=== PATIENT | female | born 1995 ===

== ENCOUNTER 2021-08-31 19:48 | Outpatient (CLI) | payer SELFPAY ==
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
[2021-08-31 21:42] LABS: Hematocrit 35.7 % (30.3-42.9); Mean Corpuscular HGB Conc 34 % (30-34); Mean Corpuscular Volume 91 fl (79-97); Platelet Count 221 K/mm3 (140-440); Red Blood Count 3.93 M/mm3 (3.65-5.03); Red Cell Distribution Width 13.6 % (13.2-15.2)
[2021-08-31 21:52] LABS: Amorphous Crystals,Urine 1+; Bacteria,Urine 2+ /HPF (Negative); Bilirubin,Urine NEG (Negative); Blood,Urine NEG (Negative); Color,Urine Yellow (Yellow); Mucus,Urine FEW /HPF; Protein,Urine <15 mg/dL mg/dL (Negative); Urobilinogen,Urine < 2.0 mg/dL (<2.0)
[2021-08-31 22:01] LABS: Alanine Aminotransferase 14 units/L (7-56); Albumin 3.6 g/dL (3.9-5); Blood Urea Nitrogen 9 mg/dL (7-17); Calcium 10.2 mg/dL (8.4-10.2); Hemolysis Index 2
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
[2021-08-31] MEDS ORDERED: ACETAMINOPHEN 500 MG TAB PO ONE (22:27)
[2021-08-31 22:39] VITALS: BP 117/67
[2021-08-31] MEDS ORDERED: LACTATED RINGERS 1,000 ML IV ONE (22:59)
[2021-08-31 23:14] LABS: BUN/Creatinine Ratio 18
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
== END 2021-09-01 02:57 | disposition home or self-care (01) ==
LOC: ED 19:48 → EDSTATUS 22:03 → TRG 22:06 → APU 22:09 → TRG 09-01 02:57
PROVIDERS: ATTEND Obstetrics & Gynecology Gynecology
DX: O26.893 Other specified pregnancy related conditions, third trimester (principal); R10.9 Unspecified abdominal pain; O47.1 False labor at or after 37 completed weeks of gestation; V89.2XXA Person injured in unspecified motor-vehicle accident, traffic, initial encounter; Z3A.32 32 weeks gestation of pregnancy; Y93.89 Activity, other specified; Y92.89 Other specified places as the place of occurrence of the external cause; Y99.8 Other external cause status
CPT/HCPCS: 36415; 59025; 76815; 76817; 76819; 80053; 81001; 85027; 86900; 86901; 96360

== ENCOUNTER 2021-10-28 01:36 | Inpatient (IN) | payer SELFPAY ==
[2021-10-28] MEDS ORDERED: fentaNYL 100 MCG/2 ML INJ IV PRN (03:23)
[2021-10-28] MEDS ORDERED: ACETAMINOPHEN 325 MG TAB PO PRN (03:23)
[2021-10-28] MEDS ORDERED: TERBUTALINE 1 MG/1 ML INJ SUB-Q PRN (03:23)
[2021-10-28] MEDS ORDERED: METHYLERGONOVINE MALEATE 0.2 MG/ML VIAL IM PRN (03:23)
[2021-10-28] MEDS ORDERED: MINERAL OIL 30 ML ORAL LIQD PO PRN (03:23)
[2021-10-28] MEDS ORDERED: LOPERAMIDE 2 MG CAP PO PRN (03:23)
[2021-10-28] MEDS ORDERED: miSOPROStol 200 MCG TAB PR PRN (03:23)
[2021-10-28] MEDS ORDERED: NalbUPHINE 10 MG/1 ML INJ IV PRN ×2 (03:23→09:08)
[2021-10-28] MEDS ORDERED: ePHEDrine SULFATE 50 MG/1 ML INJ IV PRN ×2 (03:23→09:08)
[2021-10-28] MEDS ORDERED: LIDOCAINE (2%) 20 MG/1 ML VIAL 20 ML MDV INFILTRATI ONE (03:23)
[2021-10-28] MEDS ORDERED: CARBOPROST TROMETHAMINE 250 MCG/1 ML INJ IM PRN (03:23)
[2021-10-28] MEDS ORDERED: OXYTOCIN 10 UNIT/1 ML INJ IM PRN (03:23)
[2021-10-28] MEDS ORDERED: LACTATED RINGERS 1,000 ML IV SCH (03:30)
--- NOTE | 2021-10-28 03:38 | History and Physical Report ---
History of Present Illness Date of examination: 10/28/21 Date of admission: 10/28/2021 Chief complaint: Contractions History of present illness: 26 year old presents at 41 weeks gestation with complaint of contractions. Patient denies leaking of fluid or vaginal bleeding. Patient received care at [facility] clinic and records are available. LMP 01/07/21. EDC 10/21/21 (based on first trimester ultrasound). significant for the following: overweight, GBS positive, possible elevated 1 hour sugar test (not seen on chart but have results for normal 3 hour OGTT). labs available on records are as follows: B+, antibody screen negative, rubella immune, hepatitis B surface antigen negative, RPR nonreactive, HIV negative, pap smear negative, gonorrhea negative, chlamydia negative, GBS positive, normal 3 hour OGTT, quad screen negative. Past History Past Medical History: other (overweight) Past Surgical History: no surgical history COOKING CHEF History: denies: chlamydia, gonorrhea, hepatitis B, hepatitis C, herpes, HIV, syphilis, trichomonas Family/Genetic History: none Social history: lives with family, full code. denies: smoking, alcohol abuse, prescription drug abuse, IV drug use - Obstetrical History Expected Date of Delivery: 10/28/21 Actual Gestation: 40 Week(s) 0 Day(s) : 1 Para: 0 Hx # Term Pregnancies: 0 Number of Pregnancies: 0 Spontaneous Abortions: 0 Induced : 0 Number of Living Children: 0 Medications and Allergies Allergies Allergy/AdvReac Type Severity Reaction Status Date / Time No Known Allergies Allergy Verified 08/31/21 21:02 Home Medications Medication Instructions Recorded Confirmed Last Taken Type No Known Home Medications [No 10/28/21 10/28/21 Unknown History Reported Home Medications] Active Meds: Active Medications Acetaminophen (Acetaminophen 325 Mg Tab) 650 mg PO Q4H PRN PRN Reason: Pain, Mild (1-3) Carboprost Tromethamine (Carboprost Tromethamine 250 Mcg/1 Ml Inj) 250 mcg IM ONCE PRN PRN Reason: Uterine Bleeding Ephedrine Sulfate (Ephedrine Sulfate 50 Mg/1 Ml Inj) 10 mg IV Q2M PRN PRN Reason: Hypotension Fentanyl (Fentanyl 100 Mcg/2 Ml Inj) 100 mcg IV Q2H PRN PRN Reason: Pain,Severe (7-10) LABOR PAIN Oxytocin/Sodium Chloride (Pitocin/Ns 30 Unit/500ml) 30 units in 500 mls @ 2 mls/hr IV TITR KATARZYNA; Protocol Lactated Ringer's (Lactated Ringers) 1,000 mls @ 125 mls/hr IV DIRECT KATARZYNA Oxytocin/Sodium Chloride (Pitocin/Ns 30 Unit/500ml) 30 units in 500 mls @ 40 mls/hr IV TITR KATARZYNA; Protocol Ampicillin Sodium (Ampicillin/Ns 2 Gm/100 Ml) 2 gm in 100 mls @ 100 mls/hr IV ONCE ONE; Protocol Stop: 10/28/21 04:22 Ampicillin Sodium (Ampicillin/Ns 1 Gm/50 Ml) 1 gm in 50 mls @ 100 mls/hr IV Q4H KATARZYNA; Protocol Lidocaine (Lidocaine (2%) 20 Mg/1 Ml Vial 20 Ml Mdv) 20 ml INFILTRATI ONCE ONE Stop: 10/28/21 03:24 Loperamide HCl (Loperamide 2 Mg Cap) 2 mg PO ONCE PRN PRN Reason: give with Hemabate Methylergonovine Maleate (Methylergonovine Maleate 0.2 Mg/Ml Vial) 0.2 mg IM ONCE PRN PRN Reason: Uterine Bleeding Mineral Oil (Mineral Oil 30 Ml Oral Liqd) 30 ml PO QHS PRN PRN Reason: Constipation Misoprostol (Misoprostol 200 Mcg Tab) 800 mcg MT ONCE PRN PRN Reason: Uterine Bleeding Nalbuphine HCl (Nalbuphine 10 Mg/1 Ml Inj) 10 mg IV Q2H PRN PRN Reason: Pain, Moderate (4-6) Oxytocin (Oxytocin 10 Unit/1 Ml Inj) 10 unit IM ONCE PRN PRN Reason: Uterine Bleeding Terbutaline Sulfate (Terbutaline 1 Mg/1 Ml Inj) 0.25 mg SUB-Q ONCE PRN PRN Reason: Hyperstimulation/Hypertonicity Review of Systems All systems: negative (contractions) - Vital Signs Vital signs: Vital Signs Pulse BP 69 117/76 10/28/21 02:09 10/28/21 02:09 Temp Pulse Resp BP Pulse Ox 98 F 78 117/76 99 10/28/21 02:10 10/28/21 02:58 10/28/21 02:09 10/28/21 02:58 - Physical Exam Abdomen: Positive: normal appearance, soft. Negative: distention, tenderness, guarding, rigidity Genitourinary (Female): Positive: normal external genitalia, normal perenium. Negative: perineal/vulvar lesions Vagina: Positive: normal moisture Uterus: Positive: enlarged. Negative: tender Anus/Rectum: Positive: normal perianal skin Extremities: Negative: tenderness - Obstetrical FHR: category 1 Uterine Contraction Monitor Mode: External Cervical Dilatation: 2 Cervical Effacement Percentage: 80 station: -2 Uterine Contraction Pattern: Regular Uterine Contraction Intensity: Moderate Results All other labs normal. Assessment and Plan A: at 41 weeks gestation. Early labor. GBS positive. P: Admit. EFM. GBS prophylaxis. Pitocin augmentation of labor.
[2021-10-28] MEDS ORDERED: OXYTOCIN DRIP 30 UNITS/500 ML BAG IV SCH ×2 (04:00)
[2021-10-28] MEDS ORDERED: AMPICILLIN/NS 2 GM/100 ML 2 GM/100 ML BAG IV ONE (04:23)
[2021-10-28 04:35] LABS: Hematocrit 34.2 % (30.3-42.9); Hemoglobin 11.9 gm/dl (10.1-14.3); Mean Corpuscular HGB Conc 35 % (30-34); Mean Corpuscular Volume 89 fl (79-97); Platelet Count 177 K/mm3 (140-440); Red Blood Count 3.83 M/mm3 (3.65-5.03); Red Cell Distribution Width 14.7 % (13.2-15.2)
[2021-10-28] MEDS ORDERED: ONDANSETRON 4 MG/2 ML INJ IV PRN ×3 (04:57→17:52)
[2021-10-28] MEDS: AMPICILLIN/NS 1 GM/50 ML 1 GM/50 ML BAG IV SCH ×3 (08:00→16:08)
[2021-10-28] MEDS ORDERED: LACTATED RINGERS 250 ML IV SOLN IV ONE (09:08)
[2021-10-28] MEDS ORDERED: diphenhydrAMINE 50 MG/ML VIAL IV PRN (09:08)
[2021-10-28] MEDS ORDERED: NALOXONE 2 MG/2 ML INJ IV PRN (09:08)
--- NOTE | 2021-10-28 09:36 | Anesthesia Consultation ---
Anesthesia Consult and Med Hx Date of service: 10/28/21 - Airway Anesthetic Teeth Evaluation: Good ROM Head & Neck: Adequate Mental/Hyoid Distance: Adequate Mallampati Class: Class III Intubation Access Assessment: Probably Good - Pulmonary Exam CTA: Yes - Cardiac Exam Cardiac Exam: RRR - Pre-Operative Health Status ASA Pre-Surgery Classification: ASA2 Proposed Anesthetic Plan: Epidural - Pulmonary Hx Smoking: No Hx Asthma: No Hx Sleep Apnea: No - Cardiovascular System Hx Hypertension: No Hx Heart Attack/AMI: No Hx Angina: No - Central Nervous System Hx Seizures: No Hx Psychiatric Problems: No - Gastrointestinal Hx Gastroesophageal Reflux Disease: No - Endocrine Hx Renal Disease: No Hx Liver Disease: No Hx Insulin Dependent Diabetes: No Hx Non-Insulin Dependent Diabetes: No Hx Hypothyroidism: No Hx Hyperthyroidism: No - Hematic Hx Anemia: No Hx Sickle Cell Disease: No - Other Systems Hx Alcohol Use: No
--- NOTE | 2021-10-28 09:37 | Progress Note ---
Subjective - Subjective Date of service: 10/28/21 Interval history: AROM: +ve meconium cervix 4cm/100%/-2 plan for epidural and oxytocin per protocol FHT Category 1: +ve early variables Maternal/ status reassuring overall Farida Perdomo MD Objective - Vital Signs Vital Signs: Vital Signs - 12hr 10/28/21 10/28/21 10/28/21 02:09 02:10 02:31 Temperature 98 F Pulse Rate 69 73 Respiratory Rate Blood Pressure 117/76 Blood Pressure [Left] O2 Sat by Pulse 100 Oximetry O2 Sat by Pulse Oximetry [ Anterior Bilateral Throughout] 10/28/21 10/28/21 10/28/21 02:48 02:53 02:58 Temperature Pulse Rate 80 77 78 Respiratory Rate Blood Pressure Blood Pressure [Left] O2 Sat by Pulse 87 100 99 Oximetry O2 Sat by Pulse Oximetry [ Anterior Bilateral Throughout] 10/28/21 10/28/21 10/28/21 03:54 03:59 04:04 Temperature Pulse Rate 80 89 75 Respiratory Rate Blood Pressure Blood Pressure [Left] O2 Sat by Pulse 99 100 99 Oximetry O2 Sat by Pulse Oximetry [ Anterior Bilateral Throughout] 10/28/21 10/28/21 10/28/21 04:09 04:16 04:17 Temperature Pulse Rate 75 77 76 Respiratory Rate Blood Pressure 123/63 Blood Pressure [Left] O2 Sat by Pulse 99 100 Oximetry O2 Sat by Pulse Oximetry [ Anterior Bilateral Throughout] 10/28/21 10/28/21 10/28/21 04:22 04:27 04:32 Temperature Pulse Rate 81 74 71 Respiratory Rate Blood Pressure Blood Pressure [Left] O2 Sat by Pulse 98 100 100 Oximetry O2 Sat by Pulse Oximetry [ Anterior Bilateral Throughout] 10/28/21 10/28/21 10/28/21 04:37 04:42 04:43 Temperature Pulse Rate 78 77 Respiratory 18 Rate Blood Pressure Blood Pressure [Left] O2 Sat by Pulse 99 100 Oximetry O2 Sat by Pulse Oximetry [ Anterior Bilateral Throughout] 10/28/21 10/28/21 10/28/21 04:47 04:52 04:57 Temperature Pulse Rate 88 106 H 74 Respiratory Rate Blood Pressure Blood Pressure [Left] O2 Sat by Pulse 94 99 98 Oximetry O2 Sat by Pulse 99 Oximetry [ Anterior Bilateral Throughout] 10/28/21 10/28/21 10/28/21 05:02 05:07 05:08 Temperature 98.2 F Pulse Rate 75 75 Respiratory 20 Rate Blood Pressure Blood Pressure [Left] O2 Sat by Pulse 99 96 99 Oximetry O2 Sat by Pulse Oximetry [ Anterior Bilateral Throughout] 10/28/21 10/28/21 10/28/21 05:12 05:17 05:22 Temperature Pulse Rate 81 74 76 Respiratory Rate Blood Pressure Blood Pressure [Left] O2 Sat by Pulse 99 98 97 Oximetry O2 Sat by Pulse Oximetry [ Anterior Bilateral Throughout] 10/28/21 10/28/21 10/28/21 05:27 05:32 05:37 Temperature Pulse Rate 76 71 75 Respiratory Rate Blood Pressure Blood Pressure [Left] O2 Sat by Pulse 97 98 97 Oximetry O2 Sat by Pulse Oximetry [ Anterior Bilateral Throughout] 10/28/21 10/28/21 10/28/21 05:42 05:47 05:52 Temperature Pulse Rate 70 69 71 Respiratory Rate Blood Pressure Blood Pressure [Left] O2 Sat by Pulse 98 98 98 Oximetry O2 Sat by Pulse Oximetry [ Anterior Bilateral Throughout] 10/28/21 10/28/21 10/28/21 05:57 06:02 06:07 Temperature Pulse Rate 67 74 77 Respiratory Rate Blood Pressure Blood Pressure [Left] O2 Sat by Pulse 97 97 94 Oximetry O2 Sat by Pulse Oximetry [ Anterior Bilateral Throughout] 10/28/21 10/28/21 10/28/21 06:12 06:13 06:17 Temperature Pulse Rate 81 75 80 Respiratory Rate Blood Pressure 107/57 Blood Pressure [Left] O2 Sat by Pulse 98 97 Oximetry O2 Sat by Pulse Oximetry [ Anterior Bilateral Throughout] 10/28/21 10/28/21 10/28/21 06:22 06:27 06:32 Temperature Pulse Rate 71 89 80 Respiratory Rate Blood Pressure Blood Pressure [Left] O2 Sat by Pulse 98 99 98 Oximetry O2 Sat by Pulse Oximetry [ Anterior Bilateral Throughout] 10/28/21 10/28/21 10/28/21 06:37 06:42 06:47 Temperature Pulse Rate 82 77 68 Respiratory Rate Blood Pressure Blood Pressure [Left] O2 Sat by Pulse 98 99 98 Oximetry O2 Sat by Pulse Oximetry [ Anterior Bilateral Throughout] 10/28/21 10/28/21 10/28/21 06:52 06:57 07:02 Temperature Pulse Rate 79 82 76 Respiratory Rate Blood Pressure Blood Pressure [Left] O2 Sat by Pulse 99 98 99 Oximetry O2 Sat by Pulse Oximetry [ Anterior Bilateral Throughout] 10/28/21 10/28/21 10/28/21 07:07 07:12 07:17 Temperature Pulse Rate 75 80 81 Respiratory Rate Blood Pressure 108/63 Blood Pressure [Left] O2 Sat by Pulse 98 98 98 Oximetry O2 Sat by Pulse Oximetry [ Anterior Bilateral Throughout] 10/28/21 10/28/21 10/28/21 07:22 07:27 07:30 Temperature Pulse Rate 75 76 Respiratory Rate Blood Pressure Blood Pressure [Left] O2 Sat by Pulse 99 98 Oximetry O2 Sat by Pulse 98 Oximetry [ Anterior Bilateral Throughout] 10/28/21 10/28/21 10/28/21 07:32 07:37 07:40 Temperature 98.6 F Pulse Rate 82 88 80 Respiratory 16 Rate Blood Pressure Blood Pressure 127/57 [Left] O2 Sat by Pulse 97 99 99 Oximetry O2 Sat by Pulse Oximetry [ Anterior Bilateral Throughout] 10/28/21 10/28/21 10/28/21 07:42 07:47 07:56 Temperature Pulse Rate 80 79 78 Respiratory Rate Blood Pressure 127/57 Blood Pressure [Left] O2 Sat by Pulse 97 98 99 Oximetry O2 Sat by Pulse Oximetry [ Anterior Bilateral Throughout] 10/28/21 10/28/21 10/28/21 08:01 08:06 08:11 Temperature Pulse Rate 87 84 82 Respiratory Rate Blood Pressure 120/58 Blood Pressure [Left] O2 Sat by Pulse 98 99 99 Oximetry O2 Sat by Pulse Oximetry [ Anterior Bilateral Throughout] 10/28/21 10/28/21 10/28/21 08:16 08:21 08:26 Temperature Pulse Rate 75 79 79 Respiratory Rate Blood Pressure Blood Pressure [Left] O2 Sat by Pulse 98 98 99 Oximetry O2 Sat by Pulse Oximetry [ Anterior Bilateral Throughout] 10/28/21 10/28/21 10/28/21 08:32 08:37 08:42 Temperature Pulse Rate 74 78 85 Respiratory Rate Blood Pressure Blood Pressure [Left] O2 Sat by Pulse 100 100 99 Oximetry O2 Sat by Pulse Oximetry [ Anterior Bilateral Throughout] 10/28/21 10/28/21 10/28/21 08:47 08:52 08:58 Temperature Pulse Rate 87 75 80 Respiratory Rate Blood Pressure Blood Pressure [Left] O2 Sat by Pulse 99 99 98 Oximetry O2 Sat by Pulse Oximetry [ Anterior Bilateral Throughout] 10/28/21 10/28/21 10/28/21 09:03 09:08 09:13 Temperature Pulse Rate 77 75 82 Respiratory Rate Blood Pressure Blood Pressure [Left] O2 Sat by Pulse 100 99 100 Oximetry O2 Sat by Pulse Oximetry [ Anterior Bilateral Throughout] 10/28/21 09:18 Temperature Pulse Rate 87 Respiratory Rate Blood Pressure Blood Pressure [Left] O2 Sat by Pulse 98 Oximetry O2 Sat by Pulse Oximetry [ Anterior Bilateral Throughout] - Labs Labs: Abnormal Labs 10/28/21 04:10 WBC 15.0 H MCHC 35 H Laboratory Results - last 24 hr 10/28/21 10/28/21 04:10 04:10 WBC 15.0 H RBC 3.83 Hgb 11.9 Hct 34.2 MCV 89 MCH 31 MCHC 35 H RDW 14.7 Plt Count 177 Blood Type B POSITIVE Antibody Screen Negative
--- NOTE | 2021-10-28 09:37 | Progress Note ---
Labor Epidural - Labor Epidural Start Time: 09:21 Stop Time: 09:31 Performed by:: VERONIQUE WILEY ([facility]) Procedure: Patient is requesting epidural for labor and pain. H&P, labs were reviewed. Patient IDed, all questions and concerns were answered, and consent was signed. Timeout was performed at bedside. Patient in sitting position. Sterile prep and drape was performed. 3ml of 1% lidocaine skin wheal at L[3]- L [4]. 17-ga uge Tuohy epidural needle was advanced to loss of resistance with air technique 7cm. Negative CSF negative blood. Epidural catheter advanced to [12] centimeters. [negative] Aspiration [negative] test dose. Sterile dressing applied. Patient tolerated procedure.
[2021-10-28] MEDS ORDERED: fentaNYL-BUPIV 2 MCG/ML-0.125% 200 MCG/100 ML BAG EPIDURAL SCH (10:00)
[2021-10-28] MEDS ORDERED: WITCH HAZEL/ GLYCERIN PAD TP PRN (17:52)
[2021-10-28] MEDS ORDERED: IBUPROFEN 600 MG TAB PO PRN (17:52)
[2021-10-28] MEDS ORDERED: MORPHINE 2 MG/1 ML INJ IV PRN (17:52)
[2021-10-28] MEDS ORDERED: SENNOSIDES 8.6 MG TAB PO PRN (17:52)
[2021-10-28] MEDS ORDERED: KETOROLAC 30 MG/1 ML INJ IV PRN ×2 (17:52)
[2021-10-28] MEDS ORDERED: MAGNESIUM HYDROXIDE (MOM) ORAL LIQD UDC PO PRN (17:52)
[2021-10-28] MEDS ORDERED: PROMETHAZINE 25 MG RECT SUPP PR PRN (17:52)
[2021-10-28] MEDS ORDERED: oxyCODONE /ACETAMINOPHEN 5-325MG TAB PO PRN (17:52)
[2021-10-28] MEDS ORDERED: HYDROcodone/ACETAMINOPHEN 5-325 MG TAB PO PRN (17:52)
[2021-10-28] MEDS ORDERED: NALOXONE 0.4 MG/1 ML INJ IV PRN (17:52)
[2021-10-28] MEDS ORDERED: MORPHINE 4 MG/1 ML INJ IV PRN (17:52)
[2021-10-28] MEDS ORDERED: SIMETHICONE 80 MG CHEW TAB PO PRN (17:52)
--- NOTE | 2021-10-28 18:02 | Procedure Note ---
OB Delivery Note - Delivery Date of Delivery: 10/28/21 Surgeon: FARTUN RICHARDS Estimated blood loss: other (800ml) - Vaginal Delivery position: OA Intrapartum events: meconium Delivery induction: none Delivery augmentation: rupture of membranes, pitocin Delivery monitor: external FHT, external uterine Route of delivery: Indicators for instrumentation: nonreassuring FHR tracing Delivery placenta: spontaneous Delivery cord: 3 umbilical vessels Episiotomy: none Delivery laceration: other (bilateral labial and left lateral sulcus) Delivery repair: vicryl, chromic Anesthesia: epidural Delivery comments: Patient pushed to deliver a viable male over an intact perineum with weight 3470gms and 8/9. Position ML, no nuchal cord. Spontaneous cry at delivery. Delivery of the anterior shoulder atraumatic, remainder of delivery uncomplicated. Cord clamped cut and baby handed to waiting SHIREEN team. Spontaneous delivery of an intact placenta with three-vessel cord. Inspection of the perineum and vagina revealed bilateral labial lacerations and a left lateral sulcus laceration were repaired with Vicryl and chromic suture in the appropriate fashion. Patient had extensive bleeding from the left lateral sulcus tear. Excellent hemostasis at the completion of the repair. Firm fund us, EBL 800 mL. All sponge needle and instrument counts correct x2. Mom and baby stable to . No complications Farida Richards MD
[2021-10-28] MEDS ORDERED: LANOLIN/ZINC/DIMETHICONE (LANSINOH) 7 GM TP PRN (19:00)
[2021-10-28] MEDS ORDERED: HYDROCORTISONE 25 MG RECTAL SUPP PR PRN (22:00)
[2021-10-29] MEDS: IBUPROFEN 800 MG TAB PO PRN ×3 (05:14→18:20)
[2021-10-29 07:23] LABS: Hematocrit 22.5 % (30.3-42.9); Hemoglobin 7.7 gm/dl (10.1-14.3)
--- NOTE | 2021-10-29 09:24 | Progress Note ---
Assessment and Plan A: day 1 S/P . Anemia. P: Supplement with iron. Repeat H&H tomorrow AM. Continue routine care. Anticipate discharge home tomorrow if patient continues to do well. Subjective - Subjective Date of service: 10/29/21 Principal diagnosis: day 1 S/P Interval history: Doing well. Denies dizziness, headache, or any other problems. Patient reports: appetite normal, voiding normally, pain well controlled, flatus, ambulating normally, no dizzy ambulation, no nauseated [place]: doing well Objective - Vital Signs Latest vital signs: Vital Signs Temp Pulse Resp BP Pulse Ox Pulse Ox 10/29/21 08:14 98.2 F 80 18 104/60 100 10/29/21 07:48 100 10/29/21 06:14 18 10/29/21 05:14 18 10/29/21 04:47 98.2 F 89 20 109/68 100 10/29/21 00:44 18 10/28/21 23:44 18 10/28/21 23:30 100 10/28/21 22:33 98.2 F 90 20 105/74 97 10/28/21 20:45 94 H 98 10/28/21 20:43 89 107/52 10/28/21 20:40 84 98 10/28/21 20:35 84 99 10/28/21 20:30 93 H 98 10/28/21 20:28 98 H 102/65 10/28/21 20:25 85 98 10/28/21 20:20 94 H 98 10/28/21 20:15 83 98 10/28/21 20:13 84 100/58 10/28/21 20:10 95 H 99 10/28/21 20:05 83 98 10/28/21 20:00 84 98 10/28/21 19:58 89 103/59 10/28/21 19:55 89 98 10/28/21 19:50 92 H 98 10/28/21 19:45 87 98 10/28/21 19:43 105 H 95/53 10/28/21 19:40 87 98 10/28/21 19:35 105 H 99 10/28/21 19:30 107 H 99 10/28/21 19:28 86 106/59 10/28/21 19:25 82 98 10/28/21 19:20 111 H 99 10/28/21 19:15 111 H 99 10/28/21 19:14 105 H 91/61 10/28/21 19:10 93 H 99 10/28/21 19:05 107 H 98 10/28/21 19:00 115 H 99 10/28/21 18:55 93 H 97 10/28/21 18:50 95 H 99 10/28/21 18:45 106 H 98 10/28/21 18:43 106 H 96/68 10/28/21 18:40 105 H 99 10/28/21 18:35 108 H 99 10/28/21 18:30 91 H 97 10/28/21 18:28 111 H 91/54 10/28/21 18:25 97 H 98 10/28/21 18:24 95 H 98/60 10/28/21 18:20 105 H 98 10/28/21 18:15 105 H 99 10/28/21 18:10 101 H 99 10/28/21 18:05 112 H 98 10/28/21 18:00 115 H 99 10/28/21 17:58 101 H 99/55 10/28/21 17:55 104 H 99 10/28/21 17:50 102 H 99 10/28/21 17:45 105 H 100 10/28/21 17:43 131 H 98/55 10/28/21 17:42 103 H 107/54 10/28/21 17:40 101 H 100 10/28/21 17:35 91 H 100 10/28/21 17:30 92 H 100 10/28/21 17:28 103 H 104/57 10/28/21 17:25 104 H 100 10/28/21 17:22 110 H 96/52 10/28/21 17:20 115 H 93 10/28/21 17:15 98.1 F 91 H 17 92 10/28/21 17:13 90 105/50 10/28/21 17:10 52 L 99 10/28/21 17:09 85 10/28/21 17:08 75 108/55 10/28/21 16:44 78 99 10/28/21 16:43 98 H 76 L 10/28/21 16:39 74 132/61 99 10/28/21 16:34 69 90 10/28/21 16:29 66 99 10/28/21 16:24 68 99 10/28/21 16:19 69 92 10/28/21 16:14 83 100 10/28/21 16:13 75 91 10/28/21 16:09 68 98 10/28/21 16:08 67 128/65 10/28/21 16:05 63 82 L 10/28/21 16:04 61 96 10/28/21 15:59 63 99 10/28/21 15:56 76 92 10/28/21 15:54 85 100 10/28/21 15:49 63 99 10/28/21 15:44 60 91 10/28/21 15:39 68 122/72 100 10/28/21 15:34 69 100 10/28/21 15:32 60 94 10/28/21 15:29 77 100 10/28/21 15:24 65 99 10/28/21 15:19 69 100 10/28/21 15:16 71 92 10/28/21 15:14 72 100 10/28/21 15:10 72 91 10/28/21 15:09 72 133/66 100 10/28/21 15:03 75 96 10/28/21 14:59 79 92 10/28/21 14:58 74 100 10/28/21 14:53 88 99 10/28/21 14:48 67 97 10/28/21 14:43 70 93 10/28/21 14:39 71 139/75 10/28/21 14:38 74 97 10/28/21 14:34 72 93 10/28/21 14:33 79 100 10/28/21 14:28 77 98 10/28/21 14:23 65 93 10/28/21 14:18 77 97 10/28/21 14:13 71 93 10/28/21 14:11 70 131/72 03 14:08 78 100 10/28/21 14:03 82 100 10/28/21 13:58 82 99 10/28/21 13:53 84 98 10/28/21 13:48 73 98 10/28/21 13:43 79 100 10/28/21 13:38 73 122/73 99 0305 13:33 79 99 0305 13:28 76 100 10/28/21 13:27 82 85 10/28/21 13:23 75 99 10/28/21 13:18 72 99 10/28/21 13:13 78 100 10/28/21 13:08 75 108/56 100 10/28/21 13:03 89 99 10/28/21 12:58 72 99 10/28/21 12:53 71 99 10/28/21 12:48 71 99 10/28/21 12:43 75 100 10/28/21 12:38 69 98/55 99 10/28/21 12:33 71 99 10/28/21 12:28 70 99 10/28/21 12:23 72 100 10/28/21 12:18 72 100 10/28/21 12:13 76 99 10/28/21 12:08 73 96/55 99 10/28/21 12:03 87 99 10/28/21 11:58 76 97 10/28/21 11:53 74 99 10/28/21 11:48 82 100 10/28/21 11:43 75 98 10/28/21 11:39 71 108/60 10/28/21 11:38 70 97 10/28/21 11:33 70 97 10/28/21 11:28 73 99 10/28/21 11:23 70 97 10/28/21 11:18 69 97 10/28/21 11:13 68 97 10/28/21 11:09 65 102/54 10/28/21 11:08 64 97 10/28/21 11:03 68 96 10/28/21 10:58 67 96 10/28/21 10:53 67 98 05 10:48 71 96 10/28/21 10:43 71 96 10/28/21 10:38 69 107/54 96 05 10:33 82 98 05 10:28 75 98 10/28/21 10:23 69 98 10/28/21 10:18 74 97 10/28/21 10:13 79 98 10/28/21 10:08 71 97 10/28/21 10:07 67 106/53 10/28/21 10:05 76 98/56 0305 10:03 73 109/57 97 05 10:01 81 117/57 05 09:59 75 107/55 10/28/21 09:58 70 97 10/28/21 09:57 73 104/56 10/28/21 09:55 76 105/56 10/28/21 09:53 74 105/59 98 10/28/21 09:51 74 108/55 10/28/21 09:49 98 H 105/55 10/28/21 09:48 80 97 10/28/21 09:47 88 109/58 10/28/21 09:45 109/58 10/28/21 09:43 82 108/57 97 10/28/21 09:41 78 113/59 10/28/21 09:40 88 113/58 10/28/21 09:38 79 100 10/28/21 09:37 88 117/58 10/28/21 09:35 80 118/61 10/28/21 09:33 101 H 126/70 100 10/28/21 09:31 91 H 126/59 10/28/21 09:29 85 118/56 10/28/21 09:28 85 99 10/28/21 09:27 85 121/60 10/28/21 09:25 90 120/58 10/28/21 09:23 84 120/57 100 Intake and Output 10/28/21 10/29/21 10/29/21 23:59 07:59 15:59 Intake Total 480 240 Output Total 350 500 Balance -350 -20 240 Intake: Oral 480 240 Output: Urine 350 500 Indwelling Catheter 350 Void 500 Other: Total, Intake Amount 480 240 Total, Output Amount 350 500 # Voids Indwelling Catheter 1 Void 1 1 Estimated Blood Loss 800 - Exam Cardiovascular: Present: Regular rate, No murmurs Lungs: Present: Clear to auscultation Abdomen: Present: normal appearance, soft. Absent: distention, tenderness, guarding, rigidity Uterus: Present: normal, firm, fundal height below umbilicus. Absent: bogginess, tenderness Extremities: Absent: tenderness - Labs Labs: Abnormal lab results 10/29/21 Range/Units 06:59 Hgb 7.7 L D (10.1-14.3) gm/dl Hct 22.5 L D (30.3-42.9) %
[2021-10-29] MEDS: FERROUS SULFATE 325 MG TAB PO SCH ×2 (10:28→21:12)
[2021-10-30] MEDS: IBUPROFEN 800 MG TAB PO PRN ×2 (05:13→20:11)
[2021-10-30 05:36] LABS: Hemoglobin 6.9 gm/dl (10.1-14.3)
[2021-10-30 05:46] LABS: Hematocrit 19.9 % (30.3-42.9)
--- NOTE | 2021-10-30 06:21 | Event Note ---
Date: 10/30/21 Hemoglobin 6.9; hematocrit 19.9. Patient with mild tachycardia and lowish blood pressure. 2 units of PRBCs ordered. Small amount of lochia. Fundus firm and midline.
[2021-10-30] MEDS ORDERED: SODIUM CHLORIDE 0.9% 500 ML 500 ML IV ONE (07:19)
--- NOTE | 2021-10-30 09:05 | Progress Note ---
Assessment and Plan PPD#1 with left sulcal laceration repaired and pt with anemia 1. Complete current 1st PRBC and repeat cbc prior to the 2nd unit 2. Increase ferrous sulfate to 325mg TID and add vit C 3. Routine PP care and transfuse the 2nd unit if hgb less than 7 All questions encouraged after plan of care discussed with pt and she agrees that she will remain in the hospital today Subjective Date of service: 10/30/21 Principal diagnosis: PPD#1 with symptomatic anemia Interval history: pt admits to feeling tired. Denies chest pain or dizziness. Pt is voiding well without difficulty and vag bleed minimal. pt is also breast feeding. Denies pelvic pain, N/V/F/C. Objective - Constitutional Vitals: Vital Signs - 12hr 10/30/21 10/30/21 10/30/21 01:20 05:13 06:13 Temperature 97.9 F Pulse Rate 70 Respiratory 20 18 18 Rate Blood Pressure 95/48 Blood Pressure [Left] O2 Sat by Pulse 99 Oximetry O2 Sat by Pulse Oximetry [ Anterior Bilateral Throughout] 10/30/21 10/30/21 10/30/21 07:47 08:01 08:26 Temperature 98 F 97.8 F Pulse Rate 78 79 Respiratory 18 18 Rate Blood Pressure 112/69 Blood Pressure 104/60 [Left] O2 Sat by Pulse 99 99 Oximetry O2 Sat by Pulse 99 Oximetry [ Anterior Bilateral Throughout] General appearance: Present: no acute distress (receiving blood transfusion 1st unit now) - Neck Neck: normal ROM - Respiratory Respiratory effort: normal - Breasts Breasts: deferred - Cardiovascular Rhythm: regular Extremities: No edema - Gastrointestinal General gastrointestinal: Present: soft, non-tender - Genitourinary Female genitourinary: other (Fundus firm 2cm below umbilicus, non-tender and lochia small) - Integumentary Integumentary: warm, dry - Neurologic Neurologic: moves all extremities - Psychiatric Psychiatric: appropriate mood/affect - Labs CBC & Chem 7: 10/30/21 05:12 Labs: Abnormal lab results 10/28/21 10/30/21 Range/Units 04:10 05:12 Hgb 6.9 L (10.1-14.3) gm/dl Hct 19.9 L* (30.3-42.9) % Crossmatch See Detail Medications & Allergies - Medications Allergies/Adverse Reactions: Allergies No Known Allergies Allergy (Verified 08/31/21 21:02) Home Medications: Home Medications Medication Instructions Recorded Confirmed Last Taken Type No Known Home Medications [No 10/28/21 10/28/21 Unknown History Reported Home Medications] Active Medications: Generic Name Dose Route Start Last Admin Trade Name Freq PRN Reason Stop Dose Admin Acetaminophen 650 mg 10/28/21 03:23 Acetaminophen 325 Mg Tab PO Q4H PRN Pain, Mild (1-3) Hydrocodone Bitart/Acetaminophen 1 each 10/28/21 17:52 10/28/21 23:44 Hydrocodone/Acetaminophen 5-325 Mg Tab PO 1 each Q6H PRN Administration Pain, Moderate (4-6) Ascorbic Acid 500 mg 10/30/21 14:00 Ascorbic Acid 500 Mg Tab PO TID [facility] Carboprost Tromethamine 250 mcg 10/28/21 03:23 Carboprost Tromethamine 250 Mcg/1 Ml Inj IM ONCE PRN Uterine Bleeding Diphenhydramine HCl 12.5 mg 10/28/21 09:08 Diphenhydramine 50 Mg/Ml Vial IV Q2H PRN Itching Ephedrine Sulfate 10 mg 10/28/21 03:23 Ephedrine Sulfate 50 Mg/1 Ml Inj IV Q2M PRN Hypotension Fentanyl 100 mcg 10/28/21 03:23 10/28/21 04:43 Fentanyl 100 Mcg/2 Ml Inj IV 100 mcg Q2H PRN Administration Pain,Severe (7-10) LABOR PAIN Ferrous Sulfate 325 mg 10/30/21 14:00 Ferrous Sulfate 325 Mg Tab PO TID [facility] Hydrocortisone Acetate 25 mg 10/28/21 22:00 Hydrocortisone 25 Mg Rectal Supp [place] BID PRN Hemorrhoids Oxytocin/Sodium Chloride 30 units in 500 mls @ 2 mls/hr 10/28/21 04:00 Pitocin/Ns 30 Unit/500ml IV TITR KATARZYNA Protocol Lactated Ringer's 1,000 mls @ 125 mls/hr 10/28/21 03:30 10/28/21 04:37 Lactated Ringers IV 125 mls/hr DIRECT KATARZYNA Administration Oxytocin/Sodium Chloride 30 units in 500 mls @ 40 mls/hr 10/28/21 04:00 10/28/21 11:33 Pitocin/Ns 30 Unit/500ml IV 8 mls/hr TITR KATARZYNA 8 mls/hr Titration Protocol Fentanyl/Bupivacaine/Sodium Chlor 200 mcg in 100 mls @ 12 mls/hr 10/28/21 10:00 10/28/21 09:51 Fentanyl-Bupiv 2 Mcg/Ml-0.125% EPIDURAL 12 mls/hr TITR KATARZYNA Administration Protocol Ibuprofen 600 mg 10/28/21 17:52 Ibuprofen 600 Mg Tab PO Q6H PRN Pain, Mild (1-3) Ibuprofen 800 mg 10/28/21 17:52 10/30/21 05:13 Ibuprofen 800 Mg Tab PO 800 mg Q6H PRN Administration Pain, Moderate (4-6) Ketorolac Tromethamine 15 mg 10/28/21 17:52 Ketorolac 30 Mg/1 Ml Inj IV 11/02/21 17:51 Q6H PRN Pain, Mild (1-3) Ketorolac Tromethamine 30 mg 10/28/21 17:52 Ketorolac 30 Mg/1 Ml Inj IV 11/02/21 17:51 Q6H PRN Pain, Moderate (4-6) Loperamide HCl 2 mg 10/28/21 03:23 Loperamide 2 Mg Cap PO ONCE PRN give with Hemabate Magnesium Hydroxide 30 ml 10/28/21 17:52 Magnesium Hydroxide (Mom) Oral Liqd Udc PO QHS PRN Constip Unrelieved By Senna Mineral Oil 30 ml 10/28/21 03:23 Mineral Oil 30 Ml Oral Liqd PO QHS PRN Constipation Misoprostol 800 mcg 10/28/21 03:23 Misoprostol 200 Mcg Tab [place] ONCE PRN Uterine Bleeding Morphine Sulfate 2 mg 10/28/21 17:52 Morphine 2 Mg/1 Ml Inj IV Q4H PRN Pain, Moderate (4-6) Morphine Sulfate 4 mg 10/28/21 17:52 Morphine 4 Mg/1 Ml Inj IV Q4H PRN Pain , Severe (7-10) Multi-Ingredient Ointment 1 applic 10/28/21 19:00 10/29/21 18:20 Lanolin/Zinc/Dimethicone (Lansinoh) 7 Gm TP 1 applic PRN PRN Administration dryness/cracking Nalbuphine HCl 10 mg 10/28/21 03:23 Nalbuphine 10 Mg/1 Ml Inj IV Q2H PRN Pain, Moderate (4-6) Nalbuphine HCl 2.5 mg 10/28/21 09:08 Nalbuphine 10 Mg/1 Ml Inj IV Q2H PRN Itching Naloxone HCl 0.1 mg 10/28/21 17:52 Naloxone 0.4 Mg/1 Ml Inj IV Q2MIN PRN Res Rate </= 8 or 02 SAT < 92% Ondansetron HCl 4 mg 10/28/21 04:57 10/28/21 05:04 Ondansetron 4 Mg/2 Ml Inj IV 4 mg Q8H PRN Administration Nausea And Vomiting Oxycodone/Acetaminophen 1 tab 10/28/21 17:52 Oxycodone /Acetaminophen 5-325mg Tab PO Q6H PRN Pain, Moderate (4-6) Oxytocin 10 unit 10/28/21 03:23 Oxytocin 10 Unit/1 Ml Inj IM ONCE PRN Uterine Bleeding Promethazine HCl 25 mg 10/28/21 17:52 Promethazine 25 Mg Rect Supp [place] Q6H PRN N/V IF NPO AND NO IV ACCESS Senna 17.2 mg 10/28/21 17:52 Sennosides 8.6 Mg Tab PO QHS PRN Constipation Simethicone 80 mg 10/28/21 17:52 Simethicone 80 Mg Chew Tab PO Q6H PRN Gas pain Terbutaline Sulfate 0.25 mg 10/28/21 03:23 Terbutaline 1 Mg/1 Ml Inj SUB-Q ONCE PRN Hyperstimulation/Hypertonicity Witch Holli/Glycerin 1 each 10/28/21 17:52 Witch Holli/ Glycerin Pad TP PRN PRN Hemorrhoids/cleansing/soothing
[2021-10-30] MEDS: FERROUS SULFATE 325 MG TAB PO SCH ×2 (13:12→19:59)
[2021-10-30] MEDS: ASCORBIC ACID 500 MG TAB PO SCH ×2 (13:12→19:59)
[2021-10-30 19:07] LABS: Hematocrit 24.1 % (30.3-42.9); Hemoglobin 8.4 gm/dl (10.1-14.3)
[2021-10-31] MEDS ORDERED: TETANUS,DIPH,PERTUSS(ACELL) VACCINE 0.5 ML SYRINGE IM ONE (04:04)
[2021-10-31] MEDS: IBUPROFEN 800 MG TAB PO PRN (06:13)
--- NOTE | 2021-10-31 08:47 | Progress Note ---
Assessment and Plan PPD#1 with resolved symptomatic anemia after 1unit PRBC 1. Will continue iron supplement and vitamin C and discharge pt home today Plan of care discussed and pt agrees. All questions encouraged and answered Subjective Date of service: 10/31/21 Principal diagnosis: PPD#3 with symptomatic anemia Interval history: pt states she no longer feels tired. Her vag bleed remains without clots and small amount. Pt is voiding without difficulty. pt is breast feeding. Pain controlled with meds. Objective - Constitutional Vitals: Vital Signs - 12hr 10/30/21 10/30/21 10/31/21 21:10 23:37 00:26 Temperature 98.1 F Pulse Rate 72 Respiratory 18 Rate Blood Pressure 120/73 O2 Sat by Pulse 98 Oximetry O2 Sat by Pulse 97 98 Oximetry [ Anterior Bilateral Throughout] 10/31/21 10/31/21 10/31/21 01:55 03:57 05:30 Temperature Pulse Rate Respiratory Rate Blood Pressure O2 Sat by Pulse Oximetry O2 Sat by Pulse 97 98 97 Oximetry [ Anterior Bilateral Throughout] General appearance: Present: no acute distress - Neck Neck: normal ROM - Respiratory Respiratory effort: normal - Breasts Breasts: deferred - Cardiovascular Rhythm: regular Extremities: No edema - Gastrointestinal General gastrointestinal: Present: soft, non-tender - Genitourinary Female genitourinary: other (Fundus non-tender 2cm below umbilicus, lochia small) - Integumentary Integumentary: warm, dry - Neurologic Neurologic: moves all extremities - Psychiatric Psychiatric: cooperative - Labs CBC & Chem 7: 10/30/21 18:37 Labs: Abnormal lab results 10/28/21 10/30/21 Range/Units 04:10 18:37 Hgb 8.4 L (10.1-14.3) gm/dl Hct 24.1 L (30.3-42.9) % Crossmatch See Detail Medications & Allergies - Medications Allergies/Adverse Reactions: Allergies No Known Allergies Allergy (Verified 08/31/21 21:02) Home Medications: Home Medications Medication Instructions Recorded Confirmed Last Taken Type No Known Home Medications [No 10/28/21 10/28/21 Unknown History Reported Home Medications] Active Medications: Generic Name Dose Route Start Last Admin Trade Name Freq PRN Reason Stop Dose Admin Acetaminophen 650 mg 10/28/21 03:23 Acetaminophen 325 Mg Tab PO Q4H PRN Pain, Mild (1-3) Hydrocodone Bitart/Acetaminophen 1 each 10/28/21 17:52 10/28/21 23:44 Hydrocodone/Acetaminophen 5-325 Mg Tab PO 1 each Q6H PRN Administration Pain, Moderate (4-6) Ascorbic Acid 500 mg 10/30/21 14:00 10/30/21 19:59 Ascorbic Acid 500 Mg Tab PO 500 mg TID KATARZYNA Administration Carboprost Tromethamine 250 mcg 10/28/21 03:23 Carboprost Tromethamine 250 Mcg/1 Ml Inj IM ONCE PRN Uterine Bleeding Diphenhydramine HCl 12.5 mg 10/28/21 09:08 Diphenhydramine 50 Mg/Ml Vial IV Q2H PRN Itching Ephedrine Sulfate 10 mg 10/28/21 03:23 Ephedrine Sulfate 50 Mg/1 Ml Inj IV Q2M PRN Hypotension Fentanyl 100 mcg 10/28/21 03:23 10/28/21 04:43 Fentanyl 100 Mcg/2 Ml Inj IV 100 mcg Q2H PRN Administration Pain,Severe (7-10) LABOR PAIN Ferrous Sulfate 325 mg 10/30/21 14:00 10/30/21 19:59 Ferrous Sulfate 325 Mg Tab PO 325 mg TID KATARZYNA Administration Hydrocortisone Acetate 25 mg 10/28/21 22:00 Hydrocortisone 25 Mg Rectal Supp [place] BID PRN Hemorrhoids Oxytocin/Sodium Chloride 30 units in 500 mls @ 2 mls/hr 10/28/21 04:00 Pitocin/Ns 30 Unit/500ml IV TITR KATARZYNA Protocol Lactated Ringer's 1,000 mls @ 125 mls/hr 10/28/21 03:30 10/28/21 04:37 Lactated Ringers IV 125 mls/hr DIRECT KATARZYNA Administration Oxytocin/Sodium Chloride 30 units in 500 mls @ 40 mls/hr 10/28/21 04:00 0301/14 11:33 Pitocin/Ns 30 Unit/500ml IV 8 mls/hr TITR KATARZYNA 8 mls/hr Titration Protocol Fentanyl/Bupivacaine/Sodium Chlor 200 mcg in 100 mls @ 12 mls/hr 10/28/21 10:00 10/28/21 09:51 Fentanyl-Bupiv 2 Mcg/Ml-0.125% EPIDURAL 12 mls/hr TITR KATARZYNA Administration Protocol Ibuprofen 600 mg 10/28/21 17:52 Ibuprofen 600 Mg Tab PO Q6H PRN Pain, Mild (1-3) Ibuprofen 800 mg 10/28/21 17:52 10/31/21 06:13 Ibuprofen 800 Mg Tab PO 800 mg Q6H PRN Administration Pain, Moderate (4-6) Ketorolac Tromethamine 15 mg 10/28/21 17:52 Ketorolac 30 Mg/1 Ml Inj IV 11/02/21 17:51 Q6H PRN Pain, Mild (1-3) Ketorolac Tromethamine 30 mg 10/28/21 17:52 Ketorolac 30 Mg/1 Ml Inj IV 11/02/21 17:51 Q6H PRN Pain, Moderate (4-6) Loperamide HCl 2 mg 10/28/21 03:23 Loperamide 2 Mg Cap PO ONCE PRN give with Hemabate Magnesium Hydroxide 30 ml 10/28/21 17:52 Magnesium Hydroxide (Mom) Oral Liqd Udc PO QHS PRN Constip Unrelieved By Senna Mineral Oil 30 ml 10/28/21 03:23 Mineral Oil 30 Ml Oral Liqd PO QHS PRN Constipation Misoprostol 800 mcg 10/28/21 03:23 Misoprostol 200 Mcg Tab [place] ONCE PRN Uterine Bleeding Morphine Sulfate 2 mg 10/28/21 17:52 Morphine 2 Mg/1 Ml Inj IV Q4H PRN Pain, Moderate (4-6) Morphine Sulfate 4 mg 10/28/21 17:52 Morphine 4 Mg/1 Ml Inj IV Q4H PRN Pain , Severe (7-10) Multi-Ingredient Ointment 1 applic 10/28/21 19:00 10/29/21 18:20 Lanolin/Zinc/Dimethicone (Lansinoh) 7 Gm TP 1 applic PRN PRN Administration dryness/cracking Nalbuphine HCl 10 mg 10/28/21 03:23 Nalbuphine 10 Mg/1 Ml Inj IV Q2H PRN Pain, Moderate (4-6) Nalbuphine HCl 2.5 mg 10/28/21 09:08 Nalbuphine 10 Mg/1 Ml Inj IV Q2H PRN Itching Naloxone HCl 0.1 mg 10/28/21 17:52 Naloxone 0.4 Mg/1 Ml Inj IV Q2MIN PRN Res Rate </= 8 or 02 SAT < 92% Ondansetron HCl 4 mg 10/28/21 04:57 10/28/21 05:04 Ondansetron 4 Mg/2 Ml Inj IV 4 mg Q8H PRN Administration Nausea And Vomiting Oxycodone/Acetaminophen 1 tab 10/28/21 17:52 Oxycodone /Acetaminophen 5-325mg Tab PO Q6H PRN Pain, Moderate (4-6) Oxytocin 10 unit 10/28/21 03:23 Oxytocin 10 Unit/1 Ml Inj IM ONCE PRN Uterine Bleeding Promethazine HCl 25 mg 10/28/21 17:52 Promethazine 25 Mg Rect Supp [place] Q6H PRN N/V IF NPO AND NO IV ACCESS Senna 17.2 mg 10/28/21 17:52 Sennosides 8.6 Mg Tab PO QHS PRN Constipation Simethicone 80 mg 10/28/21 17:52 Simethicone 80 Mg Chew Tab PO Q6H PRN Gas pain Terbutaline Sulfate 0.25 mg 10/28/21 03:23 Terbutaline 1 Mg/1 Ml Inj SUB-Q ONCE PRN Hyperstimulation/Hypertonicity Witch Holli/Glycerin 1 each 10/28/21 17:52 Witch Holli/ Glycerin Pad TP PRN PRN Hemorrhoids/cleansing/soothing
--- NOTE | 2021-10-31 09:00 | Discharge Summary ---
Providers - Providers Date of Admission: 10/28/21 03:23 Date of discharge: 10/31/21 Attending physician: FARTUN RICHARDS MD Primary care physician: FARTUN RICHARDS MD Hospitalization Reason for admission: IUP at term (with augmentation of labor due to post dates) Delivery: Episiotomy: none Laceration: vaginal side wall (left sulcus), 1st degree (labia) Other procedures: none complications: transfusion (x1unit for hgb 6.9 and pt with symptoms of fatigue) Discharge diagnosis: IUP at term delivered [place] baby: male Hospital course: Pt admitted post dates and had vag delivery complicated with left sulcus laceration, and hemorrhage. Pre-delivery hgb 11.9 and post delivery 6.9; pt given PRBC x1 unit on PPD#2 with good response and asymptomatic and therefore discharge home on iron and vitamin C supplement to follow up in office in 1wk for hgb check. Discharge hgb 8.4 post transfusion and vitals wnl. Condition at discharge: Fair Disposition: 30 STILL A PATIENT - Discharge Diagnoses (1) (spontaneous vaginal delivery) Status: Acute (2) PPHT (primary pulmonary hypertension) Status: Acute (3) PPH ( hemorrhage) Status: Acute Qualifiers: hemorrhage type: secondary hemorrhage Qualified Code(s): O72.2 - Delayed and secondary hemorrhage Plan - Provider Discharge Summary Activity: no sex for 6 weeks Diet: routine Instructions: routine Additional instructions: [] Smoking cessation referral if applicable(refer to patient education folder for contact #) [] Refer to [facility] Booklet Call your doctor immediately for: * Fever > 100.5 * Heavy vaginal bleeding ( >1 pad per hour) * Severe persistent headache * Shortness of breath * Reddened, hot, painful area to leg or breast * Drainage or odor from incision. * Keep incision clean and dry at all times and follow doctor's instructions regarding bathing/showering - Follow up plan Follow up: FARTUN RICHARDS MD [Primary Care Provider] - 7 Days
[2021-10-31 13:12] VITALS: BP 123/68
== END 2021-10-31 12:00 | disposition home or self-care (01) | DRG 806 ==
LOC: TRG 01:36 → APU 01:38 → LD 03:02 → TRG 03:23 → LD 03:23 → OB 22:22
PROVIDERS: ADMIT Obstetrics & Gynecology; ATTEND Obstetrics & Gynecology
PROC: 10E0XZZ Delivery of Products of Conception, External Approach (ICD-10-PCS; principal; 2021-10-28)
PROC: 10907ZC Drainage of Amniotic Fluid, Therapeutic from Products of Conception, Via Natural or Artificial Opening (ICD-10-PCS; 2021-10-28)
PROC: 0UQMXZZ Repair Vulva, External Approach (ICD-10-PCS; 2021-10-28)
PROC: 3E0R3BZ Introduction of Anesthetic Agent into Spinal Canal, Percutaneous Approach (ICD-10-PCS; 2021-10-28)
PROC: 00HU33Z Insertion of Infusion Device into Spinal Canal, Percutaneous Approach (ICD-10-PCS; 2021-10-28)
PROC: 30233N1 Transfusion of Nonautologous Red Blood Cells into Peripheral Vein, Percutaneous Approach (ICD-10-PCS; 2021-10-30)
PROC: 3E0234Z Introduction of Serum, Toxoid and Vaccine into Muscle, Percutaneous Approach (ICD-10-PCS; 2021-10-31)
DX: O77.0 Labor and delivery complicated by meconium in amniotic fluid (principal); O98.32 Other infections with a predominantly sexual mode of transmission complicating childbirth; Z37.0 Single live birth; O72.2 Delayed and secondary postpartum hemorrhage; I27.0 Primary pulmonary hypertension; O99.824 Streptococcus B carrier state complicating childbirth; A60.00 Herpesviral infection of urogenital system, unspecified; O70.0 First degree perineal laceration during delivery; O76 Abnormality in fetal heart rate and rhythm complicating labor and delivery; Z3A.41 41 weeks gestation of pregnancy; Z3A.40 40 weeks gestation of pregnancy; Z20.822 Contact with and (suspected) exposure to COVID-19; O90.81 Anemia of the puerperium; O16.4 Unspecified maternal hypertension, complicating childbirth; Z23 Encounter for immunization
CPT/HCPCS: 36415; 85014; 85018; 85027; 86850; 86900; 86901; 86920; 90471; 90715; 99211; G0378; J3490; G0463; J0290; J2210; J2405; J2590; J3010; J7040; J7120; P9016; U0003